=== PATIENT | female | born 1945 | race Caucasian/White ===

== ENCOUNTER 2020-09-14 12:09 | Emergency (ER) | payer MEDICARE ==
[~2020-09-14] VITALS: Ht 167.6 cm; Wt 93.4 kg
[2020-09-14 12:10] VITALS: BP_SYST 152
[2020-09-14] MEDS ORDERED: DIPH-TET-PERTUS Vaccine 0.5 ML VIAL (ADACEL) I.M. ONE (13:30)
[2020-09-14] MEDS ORDERED: HYDROcodone/ACETAMIN 7.5-325 MG TAB PO ONE (13:30)
[2020-09-14] MEDS ORDERED: LIDOCAINE 2%, 20 ML MDV INJ ONE (14:00)
[2020-09-14] MEDS ORDERED: cephALEXin 500 MG CAPSULE PO ONE (16:00)
[2020-09-14] MEDS ORDERED: CEPH250C PO (16:01)
[2020-09-14 16:21] VITALS: BP_SYST 143
== END 2020-09-14 16:23 | disposition home or self-care (01) ==
LOC: SED 12:09
DX: S63.270A Dislocation of unspecified interphalangeal joint of right index finger, initial encounter (principal); S00.11XA Contusion of right eyelid and periocular area, initial encounter; W18.49XA Other slipping, tripping and stumbling without falling, initial encounter; Y93.89 Activity, other specified; Y92.89 Other specified places as the place of occurrence of the external cause; Y99.8 Other external cause status
CPT/HCPCS: 26775; 73130; 90471; 90715; 99284; J2001